=== PATIENT | male | born 1950 | race Caucasian/White ===

== ENCOUNTER 2022-06-08 13:43 | Day surgery (SDC) | payer MEDICARE, BC ==
[~2022-06-08] VITALS: Ht 177.8 cm; Wt 91.8 kg
[2022-06-08] MEDS ORDERED: PRINZIDE 25 MG-1 TAB PO (14:47)
[2022-06-08] MEDS ORDERED: LIPITOR20 MG PO (14:47)
[2022-06-08] MEDS ORDERED: CARDIZEM CD 24240 MG PO (14:48)
[2022-06-08] MEDS ORDERED: FLOMAX 0.40.4 MG/CAP PO (14:49)
[2022-06-08] MEDS ORDERED: NORCO 325 MG-51 TAB PO (14:49)
[2022-06-08] MEDS ORDERED: MULTI VITAMINS1 TAB PO (14:50)
[2022-06-08] MEDS ORDERED: EPA FISH OIL1 SGL PO (14:51)
[2022-06-08] MEDS ORDERED: ASPIRIN E.C. 8181 MG PO (14:52)
[2022-06-08] MEDS ORDERED: TYLENOL 500MG500 MG PO (14:52)
[2022-06-08 14:55] VITALS: BP 130/73; PULSE 74; TEMP 98.2
[2022-06-08 16:57] VITALS: BP 140/86; PULSE 70; TEMP 97.5
[2022-06-08 17:04] VITALS: TEMP 98.7
[2022-06-08 17:12] VITALS: BP 143/78; PULSE 64
--- NOTE | 2022-06-08 17:30 | NUR ---
1657 RETURNS TO ROOM 7 PER CART. AWAKE, ALERT. RESP UNLABORED. HOB ELEVATED 40 DEGREES. VITAL SIGNS OBTAINED. DENIES PAIN OR URINARY URGENCY AT THIS TIME. CALL LIGHT AT SIDE. AND DAUGHTER IN ROOM. 1710 TOLERATES PO WATER WITHOUT NAUSEA. AMBULATES TO BATHROOM WITH STANDBY ASSIST. VOIDS WITHOUT DIFFICULTY. URINE DARK PINK. 1715 DISCHARGE INSTRUCTIONS REVIEWED. PATIENT, AND DAUGHTER VERBALIZE UNDERSTANDING. COPY PROVIDED IN DISCHARGE FOLDER 1724 SITS OON EDGE OF BED. DRESSES SELF. AT SIDE
[2022-06-08 17:37] VITALS: BP 144/78; PULSE 68
== END 2022-06-08 17:32 | disposition home or self-care (01) ==
LOC: SDCO 13:43
DX: N20.2 Calculus of kidney with calculus of ureter (principal); N13.8 Other obstructive and reflux uropathy; R97.20 Elevated prostate specific antigen [PSA]
CPT/HCPCS: J0690; J2405; J2704; J3010; Q9967